=== PATIENT | female | born 1985 | race Caucasian/White ===

== ENCOUNTER → 2017-11-08 | Outpatient (CLI) | payer BC ==
[~2017-11-08] MED LIST: PREN-127 PO
== END ==
LOC: LAB 11:42
PROVIDERS: ATTEND Obstetrics & Gynecology
DX: O09.90 Supervision of high risk pregnancy, unspecified, unspecified trimester (principal)
CPT/HCPCS: 36415; 82950; 85027

== ENCOUNTER 2017-12-30 11:06 | Emergency (ER) | payer OTHER, BC ==
[~2017-12-30] VITALS: Ht 167.6 cm; Wt 73.5 kg
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
[2017-12-30 14:34] VITALS: BP 116/72; Ht 167.6 cm; Wt 73.5 kg
== END 2017-12-30 14:58 | disposition home or self-care (01) ==
LOC: ER 11:09 → UNDOADMIN 12:58 → OB 12:58 → UNDODISIN 14:58
DX: O26.893 Other specified pregnancy related conditions, third trimester (principal); V43.52XA Car driver injured in collision with other type car in traffic accident, initial encounter; Z3A.35 35 weeks gestation of pregnancy
CPT/HCPCS: 59025; 73110; 99283; L3908

== ENCOUNTER → 2018-01-10 | Outpatient (CLI) | payer BC ==
[2017-12-30 14:34] VITALS: BMI 26.1
== END ==
LOC: LAB 13:46
PROVIDERS: ATTEND Obstetrics & Gynecology
DX: O09.93 Supervision of high risk pregnancy, unspecified, third trimester (principal)
CPT/HCPCS: 87081

== ENCOUNTER → 2018-01-17 | Outpatient (CLI) | payer BC ==
[2017-12-30 14:34] VITALS: BMI 26.1
[~2018-01-17] MED LIST changes: +OMEP-137 PO
== END ==
LOC: LAB 13:17
PROVIDERS: ATTEND Obstetrics & Gynecology
DX: O42.10 Premature rupture of membranes, onset of labor more than 24 hours following rupture, unspecified weeks of gestation (principal)
CPT/HCPCS: 84112

== ENCOUNTER 2018-01-29 19:53 | Outpatient (CLI) | payer BC ==
[2018-01-29] MEDS ORDERED: DLR(*) 1000 ML BAG 1,000 ML IV PRN (19:57)
[2018-01-29] MEDS ORDERED: LR(*) 1000 ML BAG 1,000 ML IV PRN (19:57)
[2018-01-29 20:20] VITALS: BP 118/77
[2018-01-31 06:40] VITALS: Wt 73.5 kg
== END 2018-01-29 21:22 | disposition home or self-care (01) ==
LOC: OB 19:53 → UNDOADMIN 19:53 → L&D 19:53 → UNDODISIN 21:22 → L&D 21:22 → EDSTATUS 01-31 07:30
PROVIDERS: ATTEND Obstetrics & Gynecology
DX: O47.1 False labor at or after 37 completed weeks of gestation (principal); Z3A.39 39 weeks gestation of pregnancy
CPT/HCPCS: 59025; 99213

== ENCOUNTER 2018-01-31 02:20 | Inpatient (IN) | payer BC ==
[2018-01-31] VITALS (25 sets, daily range): BP systolic 81–116; BP diastolic 43–78; Ht 157.5 cm; Wt 78.5 kg
[~2018-01-31] VITALS: Ht 157.5 cm; Wt 78.5 kg
[2018-01-31] MEDS ORDERED: ceFAZolin(*) 2GM/D5W 50ML 50 ML IVPB ONE (02:21)
[2018-01-31] MEDS ORDERED: LR(*) 1000 ML BAG 1,000 ML IV SCH (02:21)
[2018-01-31] MEDS ORDERED: METOCLOPRAMIDE 10 MG/2 ML SDV IVP ONE (02:25)
[2018-01-31] MEDS ORDERED: CITRIC ACID/SOD CITRATE 30 ML PO ONE (02:25)
[2018-01-31] MEDS ORDERED: FAMOTIDINE 20 MG/50 ML PREMIX IVPB ONE (02:25)
[2018-01-31 03:20] LABS: PLATELET COUNT, AUTOMATED 194 K/uL (150-450)
[2018-01-31] MEDS ORDERED: ONDANSETRON 4 MG/2 ML VIAL ONE (03:47)
[2018-01-31] MEDS ORDERED: OXYTOCIN 10 UNIT/ML SDV ONE (03:47)
[2018-01-31] MEDS ORDERED: MORPHINE PF 5 MG/10 ML AMP ONE (03:47)
[2018-01-31] MEDS ORDERED: PHENYLEPHRINE 10 MG/1 ML VIAL ONE (04:00)
[2018-01-31] MEDS ORDERED: NS 0.9% 20 ML SDV 20 ML ONE (04:03)
--- NOTE | 2018-01-31 04:09 | History & Physical ---
History of Present Illness Chief Complaint Contractions History of Present Illness 32-year-old presents at 39w3d presents in labor. She was scheduled for a repeat CD today at 0730 but has been having UCx for 36 hours. The contractions w orsened in severity last night and when she presented she was extremely anxious and morgan every 2-3 minutes. She denies vaginal bleeding, LOF or preeclampsia symptoms. Her PNC is by IMG. c/b hx of CD, scoliosis, anxiety. Fundal placenta. History Patient's Blood Type: A Positive Rubella Status: Immune Group B Strep Screen: Negative Obstetrical History: G1: Scheduled CD for scoliosis and S>D G2: Current Past Medical History: PMH: Anxiety, scoliosis, TMJ PSH: Tonsillectomy, TMJ, LEEP, metal sal fixation of thoracic spine Allergies: Coded Allergies: No Known Drug Allergies (Unverified , 12/30/17) Social History: No T/E/D. . Family History: FH: Meniere's MOTHER FH: rheumatoid arthritis MOTHER Med Rec Home Meds Active Scripts Omeprazole (OMEPRAZOLE) 20 Mg Tablet., 20 MG PO QDAY, #30 TAB 2 Refills Prov:ULISES KAY MD 01/17/18 Reported Medications Vits W-Ca,Fe,Fa(<1MG) ( VITAMINS) 1 Each Tablet, 1 EACH PO DAILY, TAB 09/15/17 Review of Systems Constitutional: No Fever Neurological: No Syncope Cardiovascular: No Chest Pain Respiratory: No Shortness of Breath Gastrointestinal: No Nausea, No Vomiting, No Diarrhea Musculoskeletal: No Pain Psychiatric: Anxiety; No Depression Exam General Exam Vital Signs VS reviewed General Apperance: Alert/Awake/No Acute Distress Neuro: No Gross deficits Eyes: Normal Extraocular Movement & Vison Cardiovascular: Regular Rate and Rhythm Respiratory: No Respiratory Distress Abdomen: Gravid - Non-Tender : Normal Musculoskeletal: No Weakness/Pain Extremities: No Cyanosis,Clubbing or Edema Integumentary: Skin Intact without Lesions or Rash Psychological: Alert & Oriented X3, Appropriate Mood & Affect Cervical Dialation: 2 Cervical Effacement (%): 80 Cervical Consistency: Soft Cervical Position: Mid Station: -1 Presentation: Vertex Uterine Contractions(Q min): 5 Uterine Contraction Strength: Moderate UC Resting Tone: Soft Fetus Feeling Movement?: Yes FHT Category: I Medical Decision Making Data Points Result Diagram: 01/31/18 0252 VTE Prophylasis: Adult Deep Vein Thrombosis/Pulmonary: No Pharmacological Contraindicati: Pt at Low Risk for VTE Mechanical Contraindications: Pt at Low Risk for VTE Assessment and Plan Problems: (1) History of delivery affecting Assessment & Plan: 32yo 39w3d presents in labor with plan for repeat CD. She is not interested in TOLAC despite being in labor. Her cervix has thinned significantly over the past 2 days. Will proceed with RLTCD now as opposed to 0730. Discussed R/B/A once again. Plan for Ancef preoperatively. (2) 39 weeks gestation of ULISES KAY MD Jan 31, 2018 04:09
[2018-01-31] MEDS ORDERED: LANOLIN OINT 7 GM TUBE TP PRN (05:20)
[2018-01-31] MEDS ORDERED: INFLUENZA VIRUS VAC 0.5 ML SYR IM ONE (05:20)
[2018-01-31] MEDS ORDERED: DLR(*) 1000 ML BAG 1,000 ML IV PRN (05:20)
[2018-01-31] MEDS ORDERED: OXYTOCIN 30 UNIT/LR 500 ML 500 ML IV PRN (05:20)
[2018-01-31] MEDS ORDERED: ONDANSETRON 4 MG/2 ML VIAL IV PRN (05:20)
[2018-01-31] MEDS ORDERED: MAGNESIUM HYDROXIDE* 30ML UDCP PO PRN (05:20)
[2018-01-31] MEDS ORDERED: MEASLES,MUMP,RUBELLA VAC 0.5ML SC ONE (05:20)
[2018-01-31] MEDS ORDERED: DIPHTH/TETANUS/ACEL. PERTUSSIS IM ONE (05:20)
[2018-01-31] MEDS ORDERED: PROMETHAZINE 25 MG/ML 1 ML AMP IVP PRN (05:20)
--- NOTE | 2018-01-31 05:20 | Post Operative Note ---
Operative Note - PROGRAM AND RESEARCH COORDINATOR Operative Day Date: Jan 31, 2018 Physicians Surgeon: Elkin English Teacher: JOCELIN Ashton Anesthesia: Spinal, Jesús Bender Diagnosis Pre-Op Diagnosis: History of repeat CD, desire for repeat in labor Post-Op Diagnosis: Same Delivery of viable female at 0442hrs, 3210g (7#1.3oz), Apgars 7/9 Procedure Procedure(s): RLTCD Fluids Fluids: IVF: 1800cc UOP: 150cc Estimated Blood Loss: 750cc ULISES KAY MD Jan 31, 2018 05:20
[2018-01-31] MEDS ORDERED: OXYC5TAB38 PO (05:25)
[2018-01-31] MEDS ORDERED: IBUP800T37 PO (05:25)
--- NOTE | 2018-01-31 05:32 | Anesthesia OB Pre-Anes Eval ---
History of Present Illness OB Anesthesia Diagnosis: repeat c/section EDC: Feb 04, 2018 : 2 Para: 1 Result Diagram: 01/31/18 0252 Weight (Pounds): 162 BMI Calculated: 26.14 Past Medical History Medical History: scoliosis (s/p thoracic sal placement ), other (dyspepsia, anxiety) Surgical History: back surgery, tonsillectomy Previous Anesthesia: general, spinal Attended Childbirth Classes?: Yes Hx Anesthesia Reactions: No Hx Family Anesthesia Reaction: No Home Meds Active Scripts Oxycodone Hcl (OXYCODONE HCL) 5 Mg Tablet, 1-2 TAB PO Q6H PRN for pain, #30 TAB 0 Refills Prov:ULISES KAY MD 01/31/18 Omeprazole (OMEPRAZOLE) 20 Mg Tablet.dr, 20 MG PO QDAY, #30 TAB 2 Refills Prov:ULISES KAY MD 01/17/18 Reported Medications Vits W-Ca,Fe,Fa(<1MG) ( VITAMINS) 1 Each Tablet, 1 EACH PO DAILY, TAB 09/15/17 Allergies: Coded Allergies: No Known Drug Allergies (Unverified , 12/30/17) Anesthesia OB ROS Neurological: No migraines/headaches, No seizures, No neuropathy, No other ENT: Denies Tooth caps, Denies Loose teeth, Denies Chipped teeth, Denies Dentures, Denies Bridges, Denies Retainers, Denies Veneers, Denies Implants, Denies Tongue ring, Denies Other Pulmonary: No asthma, No smoker (pks/day/yrs), No other Airway Class: ll Cardiovascular ROS: No edema, No arrhythmia, No other GI ROS: NPO ROS: No Herpes, No STD(s), No Liver Disease, No Renal Disease, No Other Endocrine ROS: No diabetes, No gestational diabetes, No thyroid disorder, No other Musculoskeletal ROS: No low back pain, No low back injury, No scoliosis, No other ASA Classification: 2, E Assessment and Plan Anesthesia Plan: CATRACHITA ZENG CRNA Jan 31, 2018 05:32
[2018-01-31] MEDS ORDERED: KETOROLAC 30 MG/ML VIAL ONE (05:33)
--- NOTE | 2018-01-31 05:34 | Procedure Note ---
Anesthetic Placement Note Anesthesia Plan: SAB Permit for Anesthesia Signed: Yes Anesthesia Technique: Patient Sitting Anesthesia Prep: Chlorhexidine Interspace: L 4-5 Local Anesthetic: 1% Lidocaine, 25 Gauge Needle Anesthesia Needle: 25g Pencan w/Introducer Anesthesia Attempts: 1 Cerebral Spinal Fluid: Yes, Clear Comment: 1 attempt with 2 needle redirections. Anesthesia Medications: Intrathecal Dose: mg Marcaine MPF (12), mg Astromorph (0.2) Complications: None CATRACHITA HULL ECMO SPECIALIST Jan 31, 2018 05:34
[2018-01-31] MEDS ORDERED: KETOROLAC 30 MG/ML VIAL IVP SCH (06:00)
[2018-01-31] MEDS ORDERED: IBUPROFEN 800 MG TAB PO SCH (09:00)
--- NOTE | 2018-01-31 09:12 | OB/GYN Progress Note ---
OB Subjective Progress Notes Subjective Pt is feeling well. No pain concerns. Leonard in. No ambulation yet. . OB Objective Physical Exam Vital Signs Date Time Temp Pulse Resp B/P (MAP) Pulse Ox O2 Delivery O2 Flow Rate FiO2 01/31/18 08:15 83 93 01/31/18 08:00 101/78 (86) 01/31/18 06:40 Room Air 01/31/18 06:40 98.2 14 Intake and Output 01/31/18 06:59 Output Total 360 ml Balance -360 ml Output Urine Total 360 ml General Appearance: Alert/Awake/No Acute Distress Neurological: No Gross deficits Eyes: Normal Extraocular Movement & Vison Respiratory: No Respiratory Distress Abdomen: Soft, Non-Tender, Non-Distended Incision: Clean, Dry, Intact, Dressing Extremities: No Cyanosis,Clubbing or Edema Integumentary: Skin Intact without Lesions or Rash Psychological: Alert & Oriented X3, Appropriate Mood & Affect Result Diagram: 01/31/18 0252 Assessment and Plan Problems: (1) Status post delivery Assessment & Plan: POD#0 s/p RLTCD. No concerns now. Plan to remove leonard once ambulating. ULISES KAY MD Jan 31, 2018 09:12
[2018-01-31] MEDS: DOCUSATE CALCIUM 240 MG CAP PO SCH ×2 (09:30→20:48)
[2018-01-31] MEDS: FAMOTIDINE 20 MG TAB PO SCH ×2 (09:30→20:48)
[2018-01-31] MEDS: KETOROLAC 30 MG/ML VIAL IVP SCH ×2 (12:49→18:48)
[2018-02-01] MEDS: KETOROLAC 30 MG/ML VIAL IVP SCH (00:32)
[2018-02-01] MEDS: ACETAMINOPHEN 325 MG TAB PO PRN ×3 (00:36→08:33)
[2018-02-01 03:35] VITALS: BP 112/67
[2018-02-01] MEDS: IBUPROFEN 800 MG TAB PO SCH ×3 (05:31→22:24)
[2018-02-01 06:39] LABS: PLATELET COUNT, AUTOMATED 144 K/uL (150-450)
[2018-02-01] MEDS: SIMETHICONE 80 MG CHEW CHEW PRN ×2 (06:42→09:45)
[2018-02-01] MEDS: oxyCODONE HCL 5 MG CAP PO PRN ×6 (06:42→21:11)
[2018-02-01] MEDS: FAMOTIDINE 20 MG TAB PO SCH ×2 (08:32→21:11)
[2018-02-01] MEDS: DOCUSATE CALCIUM 240 MG CAP PO SCH ×2 (08:33→21:11)
[2018-02-01 09:35] VITALS: BP 109/65
--- NOTE | 2018-02-01 12:15 | Anesthesia Post Eval Note ---
Anesthesia Post Eval Note Pt able to participate in Eval: Yes Cardiovascular Status: Satisfactory Respiratory Status: Satisfactory Pain Managment: Satisfactory PO Nausea/Vomiting: Satisfactory Temperature Management: Satisfactory Mental Status: Satisfactory, Alert, Oriented X3 Post-Op Hydration Status: Satisfactory, Tolerating PO Well, Voiding w/o Difficulty Anesthesia Type: SAB Anesthesia Tolerance: patient anxious but tolerated procedure well with verbal cues and positive reinforcement. Pt. VSS. Ambulating/voiding with no difficulties. No complaints of itching or medication intolerance. TEJAS LUNSFORD ORDER MANAGEMENT SPECIALIST Feb 01, 2018 12:15
--- NOTE | 2018-02-01 13:24 | OB/GYN Progress Note ---
OB Subjective Progress Notes Subjective Doing well. Pain controlled with oral medications. Tolerating regular diet. Ambulating. Voiding. Normal lochia. No preeclampsia symptoms. OB Objective Physical Exam Vital Signs Date Time Temp Pulse Resp B/P (MAP) Pulse Ox O2 Delivery O2 Flow Rate FiO2 02/01/18 09:35 98.8 75 16 109/65 (80) 94 Room Air Intake and Output 02/01/18 06:59 Intake Total 1379 ml Output Total 2975 ml Balance -1596 ml Intake Oral 540 ml IV Total 839 ml Output Urine Total 2975 ml # Bowel Movements 0 General Appearance: Alert/Awake/No Acute Distress Neurological: No Gross deficits Eyes: Normal Extraocular Movement & Vison Cardiovascular: Normal Rhythm & Peripheral Pulses, Regular Rate and Rhythm Respiratory: No Respiratory Distress, Clear to Auscultation Abdomen: Soft, Non-Tender, Non-Distended Incision: Clean, Dry, Intact Extremities: No Cyanosis,Clubbing or Edema Integumentary: Skin Intact without Lesions or Rash Psychological: Alert & Oriented X3, Appropriate Mood & Affect Result Diagram: 02/01/18620 Assessment and Plan Problems: (1) Status post delivery Assessment & Plan: POD#1 s/p RLTCD. No concerns. Routine orders. Anticipate home tomorrow. ULISES KAY MD Feb 01, 2018 13:24
--- NOTE | 2018-02-01 14:22 | OPERATIVE REPORT 1 ---
EVENT DATE: January 31, 2018 SURGEON: Joaquina Granger MD ANESTHESIA: Spinal by Mata Bender CRNA PREOPERATIVE DIAGNOSIS Intrauterine at 39 weeks and 3 days, presenting in spontaneous labor with history of repeat delivery and desire for repeat. POSTOPERATIVE DIAGNOSIS 1. Intrauterine at 39 weeks and 3 days, presenting in spontaneous labor with history of repeat delivery and desire for repeat. 2. Delivery of viable female at 0442 hours, weighing 3210 grams or 7 pounds 1.3 ounces with Apgars of 7 at one minute and 9 at five minutes. PROCEDURE PERFORMED Repeat low transverse delivery. IV FLUIDS 1800 cc. URINE OUTPUT 150 cc. ESTIMATED BLOOD LOSS 750 cc. INDICATIONS FOR PROCEDURE This patient is a 32-year-old 2, para 1 who presents at 39 weeks and 3 days in spontaneous labor. She had actually be planned for repeat delivery later in the same day but presented in labor and, therefore, was taken to the operating room sooner than the scheduled time. The risks, benefits and alternatives were discussed with the patient. She did elect to proceed. Please see the history and physical for full details. DESCRIPTION OF PROCEDURE The patient was properly identified and taken to the operating room. She was administered a spinal anesthetic and laid in the supine position with a leftward tilt. A Arguello catheter was then placed without difficulty. The patient was placed again in the supine position and prepped and draped in the usual fashion for a delivery. She received Ancef preoperatively for prophylactic antibiotics and did have SCDs on and running at the time of the procedure. After adequate anesthesia was confirmed, her prior incision was incised using a combination of sharp and electrocautery. Once the prior scar was removed, the abdominal incision was carried down to the level of the rectus fascia, which was nicked in the midline. The incision was extended in a blunt manner bilaterally. The rectus fascia was then from the underlying rectus muscle with a combination of blunt and electrocautery dissection. Once this was achieved, the peritoneum was identified, grasped with a hemostat and entered using Metzenbaum scissors without difficulty. There was a significant amount of adhesion from the bladder to the anterior uterine serosa. The abdominal incision was extended carefully using a combination of blunt and sharp dissection to allow visualization of the full vesicouterine peritoneum. The two speck adhesions which were attached to the mid portion of the uterus were brought down with a combination of electrocautery and sharp dissection. The bladder was further reflected off the lower uterine segment carefully. Once there was adequate exposure to the lower uterine segment, a scalpel was utilized to make a low transverse incision. This incision was then extended in cephalad caudad manner to allow visualization of the amniotic sac. The amniotic sac was then ruptured using an Allis clamp with the return of clear fluid. The infant's vertex was then identified and brought through the uterine incision without difficulty followed by the anterior shoulder and posterior shoulder. There was no nuchal cord. The remainder of the was then easily delivered. The had spontaneous cry and spontaneous movement of all four extremities. The infant was dried, stimulated and oropharynx and nasopharynx were bulb suctioned. After approximately 30 seconds, the cord was clamped x2 and cut and the infant was passed to the nursing personnel in good condition. The placenta was manually removed and Pitocin started through IV bag to firm the uterus. The uterus was then exteriorized and cleared of any remaining products of conception, clots or debris. Once this was achieved the uterine incisions were approximated using 0 Vicryl, working from one apex to the next. A second imbricating layer of 0 Monocryl was then utilized to further reapproximate the uterine incision. One single [id number] suture was utilized to achieve hemostasis in the mid portion of the transverse incision. Once hemostasis was assured, bilateral fallopian tubes and ovaries were visualized, which did appear within normal limits. The uterus was then replaced into the abdominal cavity. Paracolic gutters were cleared of clots and debris. The uterine incision was again inspected and the incision was noted to be hemostatic. However, due to the significant amount of anterior adhesions, there was a small amount of oozing from the vesicouterine dissection. Therefore, Tobias was paced in this area to achieve excellent hemostasis. Once this was achieved, the peritoneum was identified and reapproximated using 2-0 Monocryl followed by reapproximation of the rectus muscle. Copious irrigation of the rectus muscles was performed and hemostasis was assured. The rectus fascia was then reapproximated using 0 Vicryl, working from one apex to the next. Copious irrigation of subcutaneous tissue was then performed with hemostasis by electrocautery. The subcutaneous tissue was reapproximated using 2-0 Monocryl followed by closure of the skin with Insorb danny. A Primapore dressing was placed. The patient tolerated the procedure well and recovered in labor and delivery with her . All sponge, needle and instrument counts were correct at the end of this procedure. ALANNAH
[2018-02-01 17:30] VITALS: BP 106/61
[2018-02-01 19:30] VITALS: BP 110/60
[2018-02-01 23:00] VITALS: BP 112/74
[2018-02-02 03:00] VITALS: BP 104/74
[2018-02-02] MEDS: oxyCODONE HCL 5 MG CAP PO PRN ×3 (03:06→12:00)
[2018-02-02] MEDS: IBUPROFEN 800 MG TAB PO SCH (05:30)
[2018-02-02] MEDS: FAMOTIDINE 20 MG TAB PO SCH (07:28)
[2018-02-02] MEDS: DOCUSATE CALCIUM 240 MG CAP PO SCH (07:29)
[2018-02-02 07:30] VITALS: BP 119/74
--- NOTE | 2018-02-02 08:09 | OB/GYN Progress Note ---
OB Subjective Progress Notes Subjective Doing well. Pain controlled with oral medications. Tolerating regular diet. Ambulating. Voiding. Normal lochia. No preeclampsia symptoms. OB Objective Physical Exam Vital Signs Date Time Temp Pulse Resp B/P (MAP) Pulse Ox O2 Delivery O2 Flow Rate FiO2 02/02/18 07:30 97.6 77 18 119/74 (89) 02/02/18 03:00 92 Room Air General Appearance: Alert/Awake/No Acute Distress Neurological: No Gross deficits Eyes: Normal Extraocular Movement & Vison Cardiovascular: Normal Rhythm & Peripheral Pulses, Regular Rate and Rhythm Respiratory: No Respiratory Distress, Clear to Auscultation Abdomen: Soft, Non-Tender, Non-Distended Incision: Clean, Dry, Intact Musculoskeletal: No Weakness/Pain Extremities: No Cyanosis,Clubbing or Edema Integumentary: Skin Intact without Lesions or Rash Psychological: Alert & Oriented X3, Appropriate Mood & Affect Result Diagram: 02/01/18 0621 Assessment and Plan Problems: (1) Status post delivery Assessment & Plan: POD#2 s/p RTLCD. Meeting milestones. Desires discharge to home today. Discussed routine expectations. Questions answered. Follow up in clinic in 2wks for incision check and 6wks for check. ULISES KAY MD Feb 02, 2018 08:09
--- NOTE | 2018-02-02 08:10 | OB/GYN Discharge Summary ---
Discharge Summary Reason for Hosp/Final Diag: (1) Status post delivery Hospital Course & Plan: POD#2 s/p RTLCD. Meeting milestones. Desires discharge to home today. Discussed routine expectations. Questions answered. Follow up in clinic in 2wks for incision check and 6wks for check. Lates Vital Signs Vital Signs Date Time Temp Pulse Resp B/P (MAP) Pulse Ox O2 Delivery O2 Flow Rate FiO2 02/02/18 07:30 97.6 77 18 119/74 (89) 02/02/18 03:00 92 Room Air Weight (Pounds): 173 Result Diagram: 02/01/18 0621 Condition: Improved Discharge: Home, Self Group Home Meds Active Scripts Oxycodone Hcl (OXYCODONE HCL) 5 Mg Tablet, 1-2 TAB PO Q6H PRN for pain, #30 TAB 0 Refills Prov:ULISES KAY MD 01/31/18 Omeprazole (OMEPRAZOLE) 20 Mg Tablet.dr, 20 MG PO QDAY, #30 TAB 2 Refills Prov:ULISES KAY MD 01/17/18 Reported Medications Vits W-Ca,Fe,Fa(<1MG) ( VITAMINS) 1 Each Tablet, 1 EACH PO DAILY, TAB 09/15/17 Follow up Referrals: [facility] - In Two Weeks @ [facility] with ULISES KAY MD Discharge Diet: As Tolerates Discharge Activity: No Heavy Lifting > 10lb, Pelvic Rest ULISES KAY MD Feb 02, 2018 08:10
== END 2018-02-02 13:08 | disposition home or self-care (01) | DRG 766 ==
LOC: OBSVTOIN 02:20 → OB 02:20
PROVIDERS: ADMIT Obstetrics & Gynecology; ATTEND Obstetrics & Gynecology
PROC: 10D00Z1 Extraction of Products of Conception, Low, Open Approach (ICD-10-PCS; principal; 2018-01-31)
DX: O34.211 Maternal care for low transverse scar from previous cesarean delivery (principal); O99.344 Other mental disorders complicating childbirth; F41.9 Anxiety disorder, unspecified; M41.9 Scoliosis, unspecified; Z3A.39 39 weeks gestation of pregnancy; Z37.0 Single live birth
CPT/HCPCS: 36415; 85025; 86850; 86900; 86901; J0690; J1885; J2270; J2370; J2405; J2590; J2765; J3490; J7050

== ENCOUNTER → 2018-02-21 | Outpatient (CLI) | payer BC ==
[2018-01-31 06:40] VITALS: BMI 31.6
[~2018-02-21] MED LIST changes: +FLU150 PO; +IBUP800T37 PO; +OXYC5TAB38 PO
== END ==
LOC: LAB 15:39
PROVIDERS: ATTEND Obstetrics & Gynecology
DX: N89.8 Other specified noninflammatory disorders of vagina (principal)
CPT/HCPCS: 87210